=== PATIENT | male | born 1995 | race Caucasian/White ===

== ENCOUNTER 2018-10-10 12:42 | Emergency (ER) | payer SELFPAY ==
[2018-10-10 12:43] VITALS: BP 169/92; PULSE 102; RESP 18; TEMP 36.9; O2SAT 98; BMI 27.8
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
[2018-10-10] MEDS: Naproxen 500 MG Tablet PO (14:47)
[2018-10-10 14:58] VITALS: PULSE 92; RESP 17; O2SAT 98
== END 2018-10-10 15:09 | disposition home or self-care (01) ==
PROVIDERS: Emergency Provider Emergency Medicine
DX: S09.90XA Unspecified injury of head, initial encounter (principal); V49.40XA Driver injured in collision with unspecified motor vehicles in traffic accident, initial encounter; Y93.9 Activity, unspecified; Y92.9 Unspecified place or not applicable; S92.909D Unspecified fracture of unspecified foot, subsequent encounter for fracture with routine healing; X58.XXXD Exposure to other specified factors, subsequent encounter
CPT/HCPCS: 70450; 72125; 99284